=== PATIENT | female | born 1965 | race Caucasian/White ===

== ENCOUNTER → 2020-10-17 | Outpatient (CLI) | payer BC | LOC: RAD 11:37 | DX: M54.2 Cervicalgia (principal); M54.9 Dorsalgia, unspecified; R05 Cough; M47.812 Spondylosis without myelopathy or radiculopathy, cervical region; M47.814 Spondylosis without myelopathy or radiculopathy, thoracic region; M47.816 Spondylosis without myelopathy or radiculopathy, lumbar region | CPT/HCPCS: 71046; 72050; 72072; 72100 ==

== ENCOUNTER → 2021-06-29 | Outpatient (CLI) | payer BC | LOC: HEART CORB 10:30 | DX: I25.10 Atherosclerotic heart disease of native coronary artery without angina pectoris (principal); R07.9 Chest pain, unspecified; I10 Essential (primary) hypertension; E78.5 Hyperlipidemia, unspecified; F17.210 Nicotine dependence, cigarettes, uncomplicated; I25.2 Old myocardial infarction; Z95.5 Presence of coronary angioplasty implant and graft; Z95.820 Peripheral vascular angioplasty status with implants and grafts | CPT/HCPCS: 78452; A9502; J2785 ==

== ENCOUNTER → 2021-07-13 | Outpatient (CLI) | payer BC ==
[2021-07-13 16:32] LABS: HEMOGLOBIN 10.9 gm/dl (12.3-15.3); RED BLOOD COUNT 3.61 M/UL (4.00-5.10)
[2021-07-13 16:41] LABS: BUN/CREATININE RATIO 20 (0-10)
== END ==
LOC: LAB 15:43
PROVIDERS: Internal Medicine Interventional Cardiology
DX: I10 Essential (primary) hypertension (principal); Z51.81 Encounter for therapeutic drug level monitoring; E78.5 Hyperlipidemia, unspecified; I25.119 Atherosclerotic heart disease of native coronary artery with unspecified angina pectoris; R00.1 Bradycardia, unspecified; R07.9 Chest pain, unspecified
CPT/HCPCS: 36415; 80048; 85025; 85610; 85730

== ENCOUNTER → 2021-07-17 | Outpatient (CLI) | payer BC | LOC: ECHO 09:30 | DX: R07.9 Chest pain, unspecified (principal); R00.1 Bradycardia, unspecified | CPT/HCPCS: ECHO; 93306 ==

== ENCOUNTER 2021-08-08 06:13 | Outpatient (CLI) | payer BC ==
[~2021-08-08] VITALS: Ht 154.9 cm; Wt 79.5 kg
[2021-08-08] MEDS ORDERED: ASPIRIN EC81 MG PO (07:34)
[2021-08-08] MEDS ORDERED: ATORVASTATIN CA20 MG PO (07:34)
[2021-08-08] MEDS ORDERED: IBUPROFEN800 MG PO (07:35)
[2021-08-08] MEDS ORDERED: GABAPENTIN600 MG PO (07:36)
[2021-08-08] MEDS ORDERED: DIPHENHYDRAMINE25 M2 PO (07:36)
[2021-08-08] MEDS ORDERED: ISOSORBIDE MONO30 MG PO (07:38)
[2021-08-08] MEDS ORDERED: IPRAT-ALBUT 0.5-3 ML INH (07:38)
[2021-08-08] MEDS ORDERED: LISINOPRIL-HCT1 EAC2 PO (07:39)
[2021-08-08] MEDS ORDERED: LOPRESSOR 25 MG25 MG PO (07:39)
[2021-08-08] MEDS ORDERED: LEVOTHYROXINE25 MCG PO (07:39)
[2021-08-08] MEDS ORDERED: SERTRALINE HCL25 MG PO (07:40)
[2021-08-08 19:05] LABS: HEMOGLOBIN 10.5 gm/dl (12.3-15.3); RED BLOOD COUNT 3.49 M/UL (4.00-5.10); WHITE BLOOD COUNT 9.8 K/UL (4.5-11.0)
[2021-08-09] MEDS ORDERED: NICOTINE PATCH1 EAC5 TD ×2 (14:38→16:29)
[2021-08-09] MEDS ORDERED: BRILINTA60 MG PO (16:30)
[2021-08-09] MEDS ORDERED: NITROGLYCERIN0.4 MG SL (16:32)
== END 2021-08-09 17:20 | disposition home or self-care (01) ==
LOC: CATH 06:13 → PROG CARE 10:31 → CATH 08-09 02:11 → PROG CARE 08-09 02:12 → CATH 08-09 17:20 → PROG CARE 08-09 17:20
PROVIDERS: Internal Medicine Interventional Cardiology
DX: I25.119 Atherosclerotic heart disease of native coronary artery with unspecified angina pectoris (principal); T82.855A Stenosis of coronary artery stent, initial encounter; I10 Essential (primary) hypertension; E03.9 Hypothyroidism, unspecified; E78.5 Hyperlipidemia, unspecified; I25.2 Old myocardial infarction; F17.210 Nicotine dependence, cigarettes, uncomplicated; Z20.822 Contact with and (suspected) exposure to COVID-19; Z79.82 Long term (current) use of aspirin; Z79.899 Other long term (current) drug therapy; Z91.19 Patient's noncompliance with other medical treatment and regimen; Z82.49 Family history of ischemic heart disease and other diseases of the circulatory system; Y83.9 Surgical procedure, unspecified as the cause of abnormal reaction of the patient, or of later complication, without mention of misadventure at the time of the procedure
CPT/HCPCS: 36415; 80048; 82550; 82553; 84484; 85027; 85347; 93571; 99152; 99153; C1725; C1769; C1874; C1887; C1894; C9600; J0153; J1644; J2250; J2405; J3010; J3246; J7030; Q9967

== ENCOUNTER → 2022-03-03 | Outpatient (CLI) | payer BC ==
[~2022-03-03] MED LIST: ASPIRIN EC81 MG PO; ATORVASTATIN CA20 MG PO; BRILINTA60 MG PO; DIPHENHYDRAMINE25 M2 PO; GABAPENTIN600 MG PO; IBUPROFEN800 MG PO; IPRAT-ALBUT 0.5-3 ML INH; ISOSORBIDE MONO30 MG PO; LEVOTHYROXINE25 MCG PO; LISINOPRIL-HCT1 EAC2 PO; LOPRESSOR 25 MG25 MG PO; NICOTINE PATCH1 EAC5 TD; NITROGLYCERIN0.4 MG SL; SERTRALINE HCL25 MG PO
== END ==
LOC: RAD 14:29
DX: M54.6 Pain in thoracic spine (principal); M54.50 Low back pain, unspecified; R05.9 Cough, unspecified; M47.814 Spondylosis without myelopathy or radiculopathy, thoracic region; M47.816 Spondylosis without myelopathy or radiculopathy, lumbar region
CPT/HCPCS: 72040; 72070; 72100